=== PATIENT | female | born 1985 | race Caucasian/White ===

== ENCOUNTER 2021-02-04 11:42 | Emergency (ER) | payer OTHER, BC ==
[~2021-02-04] VITALS: Ht 167.6 cm; Wt 106.6 kg
[2021-02-04 11:45] VITALS: BP_SYST 124
[2021-02-04 13:41] VITALS: BP_SYST 124
== END 2021-02-04 13:42 | disposition home or self-care (01) ==
LOC: SED 11:42
DX: J06.9 Acute upper respiratory infection, unspecified (principal); Z20.822 Contact with and (suspected) exposure to COVID-19
CPT/HCPCS: 36415; 99283

== ENCOUNTER 2022-09-03 10:35 | Emergency (ER) | payer BC, OTHER ==
[~2022-09-03] VITALS: Ht 165.1 cm; Wt 106.6 kg
[2022-09-03 10:42] VITALS: BP_SYST 129
--- NOTE | 2022-09-03 10:49 | NUR ---
CARE ENDORSED TO MARLIN HERRERA. PT VSS. NAD NOTED. PT C/O RIGHT KNEE S/P WALKING DOWN STAIRS. BOTH SIDE RAILS UP. MD TRAN TO SEE FOR MSE.
--- NOTE | 2022-09-03 10:58 | NUR ---
ER Dr. Ruiz at bedside examining patient.
[2022-09-03] MEDS ORDERED: KETOROLAC TROMETHAMINE 60 MG/2 ML VIAL IM ONE (11:00)
--- NOTE | 2022-09-03 11:00 | NUR ---
Pt bib self, ambulated with steady gait to bed 6. Pt is A&Ox4, c/o right knee pain. Pt states prior knee injury five months ago and did not follow up post treatment. Pt stated pain occurs upon impact of stair climbing. Swelling noted. Pt rates pain 02/05. Pt states that she has been taking naproxen for pain relief.
--- NOTE | 2022-09-03 11:05 | NUR ---
Pt refused test, pt states there is no possibilty of .
--- NOTE | 2022-09-03 11:05 | NUR ---
Xray at beside.
[2022-09-03] MEDS ORDERED: HYDR-3917 PO (12:26)
[2022-09-03] MEDS ORDERED: IBUP-1969 PO (12:26)
[2022-09-03 12:42] VITALS: BP_SYST 129
--- NOTE | 2022-09-03 12:42 | NUR ---
Patient given written and verbal discharge instructions and verbalizes understanding. ER Dr. Day discussed with patient the results and treatment provided. Patient in stable condition. ID arm band removed. Rx of Sherrill and Ibuprofen given. Patient educated on pain management and to follow up with PMD. Pain Scale 0/10. Opportunity for questions provided and answered. Medication side effect fact sheet provided.
== END 2022-09-03 12:42 | disposition home or self-care (01) ==
LOC: SED 10:35
DX: S83.91XA Sprain of unspecified site of right knee, initial encounter (principal); Z79.899 Other long term (current) drug therapy; W10.9XXA Fall (on) (from) unspecified stairs and steps, initial encounter; Y93.89 Activity, other specified; Y92.89 Other specified places as the place of occurrence of the external cause; Y99.8 Other external cause status
CPT/HCPCS: 99283; 29505; 73564; 81025; 96372; J1885